=== PATIENT | male | born 1995 | race African-American/Black ===

== ENCOUNTER 2020-08-16 05:25 | Emergency (ER) | payer SELFPAY ==
[~2020-08-16] VITALS: Ht 185.4 cm; Wt 100.0 kg
[2020-08-16 05:28] VITALS: TEMP 98
[2020-08-16] MEDS ORDERED: VOLTAREN 75 DR75 MG PO (05:44)
[2020-08-16] MEDS ORDERED: FLEXERIL 1010 MG/TAB PO (05:44)
[2020-08-16 05:52] VITALS: BP 114/70; PULSE 78
== END 2020-08-16 05:53 | disposition home or self-care (01) ==
LOC: COL.ER 05:25
DX: M54.5 Low back pain (principal); M54.89 Other dorsalgia
CPT/HCPCS: J1885; J2360